=== PATIENT | male | born 1975 | race Caucasian/White ===

== ENCOUNTER 2018-07-13 22:50 | Emergency (ER) | payer OTHER ==
[~2018-07-13] VITALS: Ht 177.8 cm; Wt 79.4 kg
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
[2018-07-13 23:19] VITALS: BP 146/101
[2018-07-13 23:49] LABS: BARBITURATES NEG (NEG); BENZODIAZEPINES NEG (NEG); CANNABINOIDS NEG (NEG); COCAINE NEG (NEG); METHADONE NEG (NEG); OPIATES NEG (NEG); PHENCYCLIDINE NEG (NEG)
[2018-07-13 23:50] LABS: AMPHETAMINE/METHAMPHETAMINE NEG (NEG)
== END 2018-07-13 23:56 | disposition home or self-care (01) ==
LOC: ER 22:50
DX: Z02.89 Encounter for other administrative examinations (principal)
CPT/HCPCS: 36415; 80307; 99283; G0479